=== PATIENT | female | born 1940 | race Caucasian/White ===

== ENCOUNTER 2020-08-15 21:30 | Observation (INO) ==
[2020-08-15] MEDS ORDERED: Isovue-370 500 ML BOTTLE IVP ONE (22:05)
[2020-08-15 22:15] LABS: Basophils # 0.1 K/mcL (0.0-0.2); Basophils % 0.7 %; Eosinophils # 0.3 K/mcL (0.0-0.6); Eosinophils % 2.4 %; Hematocrit 38.7 % (35.3-44.9); Hemoglobin 12.6 g/dL (11.5-15.4); Immature Granulocytes % 0.2 % (0-4); Lymphocytes # 4.9 K/mcL (0.6-4.6); Mean Corpuscular HGB Conc 32.6 g/dL (31.6-35.5); Mean Corpuscular Hemoglobin 28.2 pg (28.0-33.3); Mean Corpuscular Volume 86.6 fL (83.0-100.0); Mean Platelet Volume 10.2 fL (9.4-12.4); Monocytes # 1.5 K/mcL (0.0-1.3); Monocytes % 11.6 %; Platelet Count 334 K/mcL (140-400); Red Blood Count 4.47 M/mcL (3.82-4.97); Red Cell Distribution Width 14.8 % (11.5-14.5); Segmented Neutrophils % 48.1 %; White Blood Count 13.2 K/mcL (4.3-11.1)
[2020-08-15 22:17] LABS: Neutrophils # 6.4 K/mcL (1.6-8.9)
[2020-08-15 22:22] LABS: INR 2.3; Prothrombin Time 25.5 Seconds (9.4-12.1)
[2020-08-15 22:25] LABS: Activated Partial Thrombo Time 34.8 Seconds (26.0-36.0)
[2020-08-15] MEDS ORDERED: Prochlorperazine 10 MG/2 ML VIAL IVP STA (22:32)
[2020-08-15 22:38] LABS: Platelet Estimate Normal (Normal)
[2020-08-15 22:39] LABS: BUN/Creatinine Ratio 19 (6-26); Blood Urea Nitrogen 20 mg/dL (8-23); Calcium 9.1 mg/dL (8.6-10.3); Carbon Dioxide 24 mEq/L (23-29); Chloride 105 mEq/L (98-107); Glucose 110 mg/dL (70-105); Osmolality,Calculated 293 (280-300); Potassium 3.4 mEq/L (3.5-5.1); Sodium 140 mEq/L (136-145); eGFR For African Americans > 60 (> 60); eGFR For Non-African Americans 50 (> 60)
[2020-08-15 22:40] LABS: Troponin I < 0.03 ng/mL (< 0.04)
[2020-08-16] MEDS ORDERED: Aspirin 325 MG TABLET PO ONE (00:27)
[2020-08-16] MEDS ORDERED: Perflutren Lipid Microsphere 1.3 ML in 0.9 % Sodium Chloride 8.7 ML IVP PRN (02:32)
[2020-08-16] MEDS ORDERED: Ondansetron 4 MG/2 ML VIAL IVP PRN (02:37)
[2020-08-16] MEDS ORDERED: Nitroglycerin 0.4 MG TAB.SUBL SL PRN (02:37)
[2020-08-16] MEDS ORDERED: Naloxone 0.4 MG/ML INJ IVP PRN (02:37)
[2020-08-16] MEDS ORDERED: Potassium Chloride 20 MEQ, Lidocaine 1% 2 ML in 0.9 % Sodium Chloride 250 ML IVPB ONE (02:53)
[2020-08-16 03:25] LABS: Bacteria,Urine Few per hpf (None-Few); Bilirubin,Urine Negative (Negative); Blood,Urine Negative (Negative); Clarity,Urine Clear (Clear); Color,Urine Colorless (Yellow); Glucose,Urine (UA) Normal (Normal); Ketones,Urine Negative (Negative); Leukocyte Esterase,Urine Trace (Negative); Nitrite,Urine Negative (Negative); Protein,Urine Negative (Neg-Trace); RBC,Urine 0-3 per hpf (0-3); Specific Gravity,Urine 1.019 (1.010-1.025); Squamous Epithelial Cell,Urine Few per hpf (None-Few); Urobilinogen,Urine Normal (Normal); WBC,Urine 0-3 per hpf (0-3)
[2020-08-16 05:10] LABS: Hematocrit 36.1 % (35.3-44.9); Hemoglobin 11.8 g/dL (11.5-15.4); Mean Corpuscular HGB Conc 32.7 g/dL (31.6-35.5); Mean Corpuscular Hemoglobin 28.3 pg (28.0-33.3); Mean Corpuscular Volume 86.6 fL (83.0-100.0); Mean Platelet Volume 10.2 fL (9.4-12.4); Platelet Count 306 K/mcL (140-400); Red Blood Count 4.17 M/mcL (3.82-4.97); Red Cell Distribution Width 14.7 % (11.5-14.5); White Blood Count 11.5 K/mcL (4.3-11.1)
[2020-08-16 05:18] LABS: INR 2.5; Prothrombin Time 28.2 Seconds (9.4-12.1)
[2020-08-16 05:31] LABS: BUN/Creatinine Ratio 18 (6-26); Blood Urea Nitrogen 16 mg/dL (8-23); Calcium 9.1 mg/dL (8.6-10.3); Carbon Dioxide 24 mEq/L (23-29); Chloride 107 mEq/L (98-107); Chol/HDL Ratio 3.6 (0-4.9); Cholesterol 151 mg/dL (< 200); Glucose 128 mg/dL (70-105); HDL Cholesterol 42 mg/dL (40-59); LDL Cholesterol,Calculated 87 mg/dL (< 100); Osmolality,Calculated 293 (280-300); Potassium 3.5 mEq/L (3.5-5.1); Sodium 140 mEq/L (136-145); Triglycerides 111 mg/dL (< 150); Troponin I < 0.03 ng/mL (< 0.04); eGFR For African Americans > 60 (> 60); eGFR For Non-African Americans > 60 (> 60)
[2020-08-16] MEDS ORDERED: Regadenoson 0.4 MG/5 ML SYRINGE IVP ONE (06:47)
[2020-08-16] MEDS ORDERED: Aspirin 81 MG TAB.CHEW PO SCH (09:00)
[2020-08-16] MEDS ORDERED: amLODIPine 5 MG TABLET PO SCH (09:00)
[2020-08-16 10:43] VITALS: BP 136/76
[2020-08-16] MEDS ORDERED: *HR* Warfarin 4 MG TABLET PO ONE (18:00)
[2020-08-16] MEDS ORDERED: Warfarin perPT PO PRN (18:00)
== END 2020-08-16 13:48 | disposition home or self-care (01) ==
LOC: 2ANU 21:30 → EMEROOARM 21:30 → SUATTDRO 08-16 00:32 → 2ANU 08-16 00:59
PROVIDERS: ADMIT Internal Medicine; ATTEND Student in an Organized Health Care Education/Training Program